=== PATIENT | male | born 1955 | race American Indian/Alaskan Native ===

== ENCOUNTER 2021-06-25 09:12 | Outpatient (CLI) | payer OTHER, MEDICARE ==
[2021-06-25 10:00] LABS: Blood Urea Nitrogen 17 mg/dL (9-20)
--- NOTE | 2021-06-25 11:27 | Cat Scan Report ---
CTA ABDOMEN AND PELVIS WITHOUT AND WITH CONTRAST INDICATION / CLINICAL INFORMATION: UNSPECIFIC GASTRIC ULCER 100 ml omni 300. TECHNIQUE: Axial CT images were obtained through the abdomen and pelvis before and after after inject ion of 100 cc of Omnipaque [address] scans at this location are performed using CT dose reduction for ALARA by means of automated exposure control. COMPARISON: None available. FINDINGS: AORTA: Mild calcific atherosclerosis. RENAL ARTERIES: No significant abnormality. CELIAC ARTERY: No significant abnormality. SUPERIOR MESENTERIC ARTERY: No significant abnormality. INFERIOR MESENTERIC ARTERY: No significant abnormality. RIGHT ILIAC ARTERIES: Mild calcific atherosclerosis. LEFT ILIAC ARTERIES: Mild calcific atherosclerosis. ADDITIONAL FINDINGS: No free intraperitoneal air or fluid. There is diverticulosis without diverticul itis. The cecum is noted within the left upper quadrant; however, there is no concerning findings rel ated to its abnormal position. There is a metallic clip noted within the gastric lumen. Multiple bila teral renal cysts without evidence of nephrolithiasis or hydronephrosis. Other than the previously me ntioned findings there is no significant abnormality in the lung bases, abdomen or pelvis. SKELETAL: No significant abnormality. IMPRESSION: 1. Mild calcific atherosclerotic disease as detailed above. 2. Surgical clip noted in the gastric lumen without CT findings of free intraperitoneal air or fluid. 3. Other findings as above. Signer Name: Rikki Vergara DO Signed: 06/25/2021 11:23 AM Workstation Name: [id number]
== END 2021-06-25 09:13 | disposition home or self-care (01) ==
LOC: CT 09:12
PROVIDERS: ATTEND Radiology Diagnostic Radiology
DX: N28.1 Cyst of kidney, acquired (principal); K92.2 Gastrointestinal hemorrhage, unspecified; K25.4 Chronic or unspecified gastric ulcer with hemorrhage; I70.0 Atherosclerosis of aorta; K57.30 Diverticulosis of large intestine without perforation or abscess without bleeding
CPT/HCPCS: 36415; 74174; 82565; 84520; Q9967